=== PATIENT | female | born 1935 | race Caucasian/White ===

== ENCOUNTER 2017-11-22 23:12 | Emergency (ER) | payer OTHER ==
[~2017-11-22] VITALS: Ht 167.6 cm; Wt 59.0 kg
[2017-11-22 23:23] VITALS: BP_SYST 127
[2017-11-23] MEDS ORDERED: ACETAMINOPHEN 500 MG TABLET PO ONE (01:15)
[2017-11-23 04:01] VITALS: BP_SYST 117
== END 2017-11-23 04:01 | disposition home or self-care (01) ==
LOC: SED 23:12
DX: M25.551 Pain in right hip (principal); M54.2 Cervicalgia; Z88.6 Allergy status to analgesic agent
CPT/HCPCS: 70450-TC; 72125-TC; 72192-TC; 99284

== ENCOUNTER 2019-01-21 17:22 | Emergency (ER) | payer OTHER, MEDICAID ==
[~2019-01-21] VITALS: Ht 167.6 cm; Wt 61.2 kg
[2019-01-21 17:40] VITALS: BP_SYST 150
[2019-01-21 20:21] LABS: BASOPHILS # (AUTO) 0.1 K/uL (0.0-0.2); BASOPHILS % (AUTO) 0.6 % (0.0-2.0); EOSINOPHILS # (AUTO) 0.2 K/uL (0.0-0.4); EOSINOPHILS % (AUTO) 2.5 % (0.0-4.0); HEMATOCRIT 36.6 % (36-48); HEMOGLOBIN 12.7 g/dL (12.0-16.0); LYMPHOCYTES # (AUTO) 1.4 K/uL (1.0-5.5); MEAN CORPUSCULAR HEMOGLOBIN 33 pg (27-31); MEAN CORPUSCULAR HGB CONC 35 % (32-36); MEAN CORPUSCULAR VOLUME 95 fL (79.0-98.0); MONOCYTES # (AUTO) 0.7 K/uL (0.0-1.0); MONOCYTES % (AUTO) 7.4 % (1.7-9.3); NEUTROPHILS # (AUTO) 7.4 K/uL (1.8-7.7); NEUTROPHILS % (AUTO) 75.5 % (40.0-70.0); PLATELET COUNT (AUTO) 235 K/uL (130-430); RED BLOOD CELL COUNT(AUTO) 3.86 MIL/uL (4.2-6.2); RED CELL DISTRIBUTION WIDTH 13.3 % (9.0-15.0); WHITE BLOOD COUNT (AUTO) 9.8 K/uL (4.8-10.8)
[2019-01-21] MEDS ORDERED: fentaNYL CITRATE/PF 100 MCG/2 ML AMP IM ONE (20:30)
[2019-01-21 20:42] LABS: ALANINE AMINOTRANSFERASE 19 U/L (12-78); ANION GAP 5 (5-15); ASPARTATE AMINOTRANSFERASE 28 U/L (10-37); CHLORIDE 105 mmol/L (98-107); CREATININE 0.85 mg/dL (0.55-1.30); GLUCOSE 110 mg/dL (70-99); POTASSIUM 3.6 mmol/L (3.5-5.1); SODIUM SERUM 139 mmol/L (136-145); TOTAL BILIRUBIN 0.3 mg/dL (0.0-1.0); UREA NITROGEN, BLOOD 10 mg/dL (8-21)
[2019-01-22 01:27] LABS: CALCIUM 8.8 mg/dL (8.4-11.0)
[2019-01-22] MEDS ORDERED: CYCLOBENZAPRINE HCL 10 MG TABLET (FLEXERIL) PO ONE (01:45)
[2019-01-22 02:00] VITALS: BP_SYST 119
[2019-01-22 02:14] LABS: CKMB RELATIVE INDEX 0.3 (0.0-2.9); CREATINE KINASE MB 1.1 ng/mL (0-3.6)
[2019-01-22] MEDS ORDERED: DULO60CA41 PO (15:54)
[2019-01-22] MEDS ORDERED: BUPR75TA8 PO (15:55)
[2019-01-22] MEDS ORDERED: DONE10TA44 PO (15:55)
[2019-01-22] MEDS ORDERED: MECL12.584 PO (15:59)
== END 2019-01-22 02:00 | disposition home or self-care (01) ==
LOC: SED 17:22
DX: S22.20XA Unspecified fracture of sternum, initial encounter for closed fracture (principal); M94.0 Chondrocostal junction syndrome [Tietze]; I10 Essential (primary) hypertension; Z88.6 Allergy status to analgesic agent; W18.39XA Other fall on same level, initial encounter; Y93.89 Activity, other specified; Y92.89 Other specified places as the place of occurrence of the external cause; Y99.8 Other external cause status
CPT/HCPCS: 36415; 70450; 71110; 71250; 72125; 80053; 82550; 82553; 84484; 85025; 93005; 96372; 99284; J3010

== ENCOUNTER 2019-01-22 14:58 | Inpatient (IN) | payer OTHER, MEDICAID ==
[~2019-01-22] VITALS: Ht 170.2 cm; Wt 67.1 kg
[2019-01-22 15:37] VITALS: BP_SYST 143
--- NOTE | 2019-01-22 15:42 | NUR ---
Patient to ER bed 6 to gown for evaluation. Side rails up. Report given to JOSE Rojas.
--- NOTE | 2019-01-22 15:44 | NUR ---
Patient is awake, alert, and oriented x4. Son is at bedside. Patient was called by radiology and told to come back, so they are here for a follow up. Patient is complaining of sternal pain 10/10, denies any other issues.
--- NOTE | 2019-01-22 15:45 | NUR ---
SHARA Le at bedside examining patient.
[2019-01-22] MEDS ORDERED: DULO60CA41 PO (15:54)
[2019-01-22] MEDS ORDERED: BUPR75TA8 PO (15:55)
[2019-01-22] MEDS ORDERED: DONE10TA44 PO (15:55)
[2019-01-22] MEDS ORDERED: MECL12.584 PO (15:59)
[2019-01-22] MEDS ORDERED: MORPHINE 4 MG/ML INJ. SYRINGE IVP ONE (16:00)
--- NOTE | 2019-01-22 16:10 | NUR ---
Radiology at bedside.
--- NOTE | 2019-01-22 16:53 | NUR ---
Patient will be admitted to care of Dr Emanuel. Admitted to medsurg unit. Will go to room 113A. Belongings list completed. Summary report printed. Report will be given at bedside.
--- NOTE | 2019-01-22 17:30 | NUR ---
Transfer to [facility]. IV present no signs or symptoms of infiltration.
--- NOTE | 2019-01-22 17:30 | NUR ---
Bob rios in ED - 01/22/19 at 1743 by [email or web address] Transfer to [facility]. IV present no signs or symptoms of infiltration.
--- NOTE | 2019-01-22 17:34 | NUR ---
ADMIT NOTE Received pt from ER to the floor with a diagnosis of STERNAL PAIN. Admission process initiated. patient oriented to pain management, safety and call light-teach back done.
[2019-01-22 17:56] VITALS: BP_SYST 156
--- NOTE | 2019-01-22 18:25 | NUR ---
RN OPENING NOTE PATIENT REPORT RECEIVED FROM JOCELIN LAWTON RN, WILL ASSESS THE PATIENT AND ENDORSE TO NEXT SHIFT.
[2019-01-22] MEDS ORDERED: traMADol HCL HCL 50 MG TABLET (ULTRAM) PO PRN (19:00)
[2019-01-22] MEDS ORDERED: PANTOPRAZOLE SODIUM 40 MG TAB PO SCH ×2 (19:00→20:00)
--- NOTE | 2019-01-22 19:42 | NUR ---
OPENING NOTES Patient is resting with family at bedside. No signs of acute respiratory distress observed. Patient has 0/10 with no movement but states she has pain when she moves. Call light within reach, bed alarm on, and bed at lowest position. Will continue to monitor.
[2019-01-22] MEDS ORDERED: DONEPEZIL HCL 5 MG TABLET (ARICEPT) PO SCH (21:00)
--- NOTE | 2019-01-22 22:14 | NUR ---
Patient is resting, eyes closed. No signs of respiratory distress observed. Patient is forgetful and needs to be reoriented that she had fallen and was brought to the hospital. Call light within reach, bed alarm on, bed at lowest position. Will continue to monitor.
--- NOTE | 2019-01-22 23:24 | NUR ---
IV RE-INSERTION: Patient pulled out IV at Left AC. Catheter intact. Restarted on 2323. Successful after 2 attempts. Will observe for any signs of infiltration.
--- NOTE | 2019-01-23 00:15 | NUR ---
Patient is resting, no signs of acute respiratory distress observed. Safety precautions in place. Will continue to monitor.
[2019-01-23 00:30] VITALS: BP_SYST 128
--- NOTE | 2019-01-23 02:35 | NUR ---
Patient is resting, no signs of acute respiratory distress observed. Call light within reach, bed alarm on, and bed at lowest position. Will continue to monitor.
--- NOTE | 2019-01-23 03:24 | NUR ---
SPOKE TO DR. SPRING, RECEIVED NEW ORDERS OF HALDOL 3MG IM ONE TIME DOSE. Relayed to Dr. Cleaning that patient is attempting to leave, stated that her daughter was waiting outside, patient is not able to be redirected after reorienting to plan of care and location. Will carry out orders.
[2019-01-23] MEDS ORDERED: HALOPERIDOL LACTATE 5 MG/ML VIAL IM SCH (04:00)
--- NOTE | 2019-01-23 04:32 | NUR ---
IV site at Right wrist infiltrated, Restarted on Right forearm. Will observe for any signs of infiltration. Patient is resting, no signs of acute respiratory distress observed. Patient still requires continual reorientation of location and plan of care. Call light within reach, bed alarm on, and bed at loweset position. Will continue to monitor.
--- NOTE | 2019-01-23 06:45 | NUR ---
CLOSING NOTES Patient is resting, no signs of acute respiratory distress observed. HOB elevated. Patient is continually reoriented but calm. SCD's on. Call light within reach, bed alarm on, bed at lowest position. Will endorse care to oncoming shift.
--- NOTE | 2019-01-23 06:55 | NUR ---
Nutrition Update Scott Scale 17 noted. Pt admitted for Substernal Bone fracture Diet: Regular BMI: 23.2 kg/m2 RD to follow per nutrition care standards.
[2019-01-23 07:00] LABS: BASOPHILS # (AUTO) 0.1 K/uL (0.0-0.2); BASOPHILS % (AUTO) 0.6 % (0.0-2.0); EOSINOPHILS # (AUTO) 0.2 K/uL (0.0-0.4); EOSINOPHILS % (AUTO) 2.3 % (0.0-4.0); HEMATOCRIT 37.5 % (36-48); HEMOGLOBIN 12.7 g/dL (12.0-16.0); LYMPHOCYTES # (AUTO) 0.8 K/uL (1.0-5.5); LYMPHOCYTES % (AUTO) 7.1 % (20.5-51.5); MEAN CORPUSCULAR HEMOGLOBIN 32 pg (27-31); MEAN CORPUSCULAR HGB CONC 34 % (32-36); MEAN CORPUSCULAR VOLUME 95 fL (79.0-98.0); MONOCYTES # (AUTO) 0.6 K/uL (0.0-1.0); MONOCYTES % (AUTO) 6.1 % (1.7-9.3); NEUTROPHILS # (AUTO) 8.9 K/uL (1.8-7.7); NEUTROPHILS % (AUTO) 83.9 % (40.0-70.0); PLATELET COUNT (AUTO) 250 K/uL (130-430); RED BLOOD CELL COUNT(AUTO) 3.93 MIL/uL (4.2-6.2); RED CELL DISTRIBUTION WIDTH 13.1 % (9.0-15.0); WHITE BLOOD COUNT (AUTO) 10.6 K/uL (4.8-10.8)
[2019-01-23 07:34] LABS: ANION GAP 4 (5-15); CHLORIDE 104 mmol/L (98-107); CREATININE 0.84 mg/dL (0.55-1.30); GLUCOSE 106 mg/dL (70-99); POTASSIUM 3.5 mmol/L (3.5-5.1); SODIUM SERUM 139 mmol/L (136-145); UREA NITROGEN, BLOOD 8 mg/dL (8-21)
[2019-01-23 08:06] LABS: CALCIUM 8.6 mg/dL (8.4-11.0)
[2019-01-23] MEDS ORDERED: MECLIZINE HCL 25 MG TABLET (ANITVERT) PO PRN (08:15)
[2019-01-23 08:49] VITALS: BP_SYST 118
[2019-01-23] MEDS ORDERED: PANTOPRAZOLE SODIUM 40 MG TAB PO SCH (09:00)
[2019-01-23] MEDS ORDERED: buPROPion HCL 75 MG TABLET PO SCH (09:00)
[2019-01-23] MEDS ORDERED: DULoxetine HCL 30 MG CAPSULE.DR (CYMBALTA) PO SCH (09:00)
--- NOTE | 2019-01-23 09:27 | NUR ---
01/23/2019 0927 This patient is sitting up in bed. She is confused, alert and oriented to name only, however very pleasant and cooperative. Vital signs obtained: bp 118/57, HR 63, temp 98.4, 93%RA, resp 20. No s/s of distress. The patient states that she is hard of hearing. Labs reviewed for today: potassium 3.5. She is advised to request assistance to get up. Bed alarm on.
--- NOTE | 2019-01-23 11:12 | NUR ---
01/23/2019 1112 This patient is lying down, eyes closed. No s/s of distress.
[2019-01-23 12:35] VITALS: BP_SYST 116; BP_SYST 127
[2019-01-23 16:08] VITALS: BP_SYST 116
[2019-01-23 16:53] VITALS: BP_SYST 118
--- NOTE | 2019-01-23 20:25 | NUR ---
01/23/2019 1300 This patient is resting in bed. She tolerated her lunch well. No s/s of distress.
--- NOTE | 2019-01-23 20:51 | NUR ---
01/23/2019 1600 PT has been in to evaluate the patient. Patient tolerated PT session.
--- NOTE | 2019-01-23 20:54 | NUR ---
01/23/2019 1640 The patient will discharge today. The family member has dressed the patient because she was told th patient was discharged by the physician. She was informed that it make take additional time to complete the paperwork before the patient will be allowed to leave. The family member has been given prescriptions for the patient by the physician so they cannot be copied. The pt's family member has left the bedside without stating when she will return.
--- NOTE | 2019-01-23 20:59 | NUR ---
01/23/2019 182 The patient is sitting up to the side of the bed. Her food is not touched. When asked whether she will eat, she states she doesn't want to be eating and miss her ride when her family returns to get her. She is encouarged to complete her meal, that they will not leave her here.
--- NOTE | 2019-01-23 21:01 | NUR ---
01/23/2019 1845 The patient is walking in the jewell with the walker stating that she is tiring from waiting for family to return. She is assisted back into her room and requested to remain there until family return.
--- NOTE | 2019-01-23 21:05 | NUR ---
01/23/2019 1855 The family have phoned to ask that the patient be brought down, and the patient is not in her room, nor in the bathroom. They are told that she is not in her room, that staff is actively searching for her. CN is made aware. Security is made aware. supervisor hydrochloric area is made aware. Arsenio's department are all called by the room nurse.
--- NOTE | 2019-01-23 21:10 | NUR ---
01/23/20192014 The [facility] department have made the hospital aware that the patient walked home and is now with family. CN has stated she has completed an incident report.
== END 2019-01-23 18:50 | disposition home or self-care (01) | DRG 914 ==
LOC: SED 14:58 → SMU 16:51
PROVIDERS: ADMIT Family Medicine; ATTEND Family Medicine
DX: S29.9XXA Unspecified injury of thorax, initial encounter (principal); S22.20XA Unspecified fracture of sternum, initial encounter for closed fracture; F03.90 Unspecified dementia, unspecified severity, without behavioral disturbance, psychotic disturbance, mood disturbance, and anxiety; F32.9 Major depressive disorder, single episode, unspecified; M19.90 Unspecified osteoarthritis, unspecified site; M81.0 Age-related osteoporosis without current pathological fracture; I10 Essential (primary) hypertension; W18.30XA Fall on same level, unspecified, initial encounter; Y93.89 Activity, other specified; Y92.89 Other specified places as the place of occurrence of the external cause; Y99.8 Other external cause status; Z79.899 Other long term (current) drug therapy; Z88.6 Allergy status to analgesic agent
CPT/HCPCS: 36415; 71045; 73564; 80048; 85025; 96374; 99285; J1630; J2270

== ENCOUNTER 2019-10-01 21:48 | Emergency (ER) | payer OTHER, MEDICAID ==
[~2019-10-01] VITALS: Ht 162.6 cm; Wt 68.0 kg
[~2019-10-01 21:48] MED LIST: BUPR75TA8 PO; DONE10TA44 PO; DULO60CA41 PO; MECL12.584 PO
[2019-10-01 22:10] VITALS: BP_SYST 156
--- NOTE | 2019-10-01 22:10 | NUR ---
Placed in room 4 . Placed on software design engineer, blood pressure machine and pulse oximeter. To gown for exam. Side rails up.
--- NOTE | 2019-10-01 22:15 | NUR ---
ER at bedside examining patient.
--- NOTE | 2019-10-01 22:18 | NUR ---
Pt presents to the ER for c/o fall on the right side of the body x yesterday. Daughter states mother fell getting out of the passenger side of the care, believes pt just lost her footing and tripped. Pt fell on R elbow and R hip. Pt has slight scrape on R elbow w/ swelling. No bruising present, denies bruising on hip. Pain when extending elbow. Denies LOC, n/v/d, sob, CP. HX of dementia. Allergy to Aspirin.
[2019-10-01] MEDS ORDERED: MORPHINE 2 MG/ML INJ. SYRINGE IM ONE (22:30)
--- NOTE | 2019-10-01 23:05 | NUR ---
Patient transported to radiology via wheelchair, accompanied by building maintenance technician.
[2019-10-01 23:50] VITALS: BP_SYST 156
--- NOTE | 2019-10-02 00:57 | NUR ---
Patient given written and verbal discharge instructions and verbalizes understanding. ER MD discussed with patient the results and treatment provided. Patient in stable condition. ID arm band removed. Rx of [place] and Narcan given. Patient educated on pain management and to follow up with PMD. Pain Scale 4/10 Opportunity for questions provided and answered. Medication side effect fact sheet provided.
== END 2019-10-02 00:57 | disposition home or self-care (01) ==
LOC: SED 21:48
DX: S32.591A Other specified fracture of right pubis, initial encounter for closed fracture (principal); M25.461 Effusion, right knee; E27.8 Other specified disorders of adrenal gland; I10 Essential (primary) hypertension; Z79.899 Other long term (current) drug therapy; Z88.6 Allergy status to analgesic agent; W01.0XXA Fall on same level from slipping, tripping and stumbling without subsequent striking against object, initial encounter; Y93.89 Activity, other specified; Y92.89 Other specified places as the place of occurrence of the external cause; Y99.8 Other external cause status
CPT/HCPCS: 72192; 73090; 73700; 96372; 99285; J2270

== ENCOUNTER 2021-01-16 13:14 | Inpatient (IN) | payer OTHER, MEDICAID, SELFPAY ==
[~2021-01-16] VITALS: Ht 160 cm; Wt 64.0 kg
[~2021-01-16 13:14] MED LIST changes: +MECL-225 PO; -MECL12.584 PO
[2021-01-16 13:17] VITALS: BP_SYST 162
[2021-01-16] MEDS ORDERED: NACL 0.9% 1,000 ML IV ONE (14:00)
[2021-01-16 14:05] LABS: ANION GAP 7 (5-15); BASOPHILS % (AUTO) 0.3 % (0.0-2.0); CALCIUM 9.3 mg/dL (8.4-11.0); CHLORIDE 101 mmol/L (98-107); EOSINOPHILS # (AUTO) 0.1 K/uL (0.0-0.4); EOSINOPHILS % (AUTO) 0.5 % (0.0-4.0); GLUCOSE 99 mg/dL (70-99); HEMATOCRIT 41.7 % (36-48); HEMOGLOBIN 14.2 g/dL (12.0-16.0); LYMPHOCYTES # (AUTO) 1.6 K/uL (1.0-5.5); LYMPHOCYTES % (AUTO) 12.4 % (20.5-51.5); MEAN CORPUSCULAR HEMOGLOBIN 32 pg (27-31); MEAN CORPUSCULAR HGB CONC 34 % (32-36); MEAN CORPUSCULAR VOLUME 94 fL (79.0-98.0); MONOCYTES # (AUTO) 0.8 K/uL (0.0-1.0); MONOCYTES % (AUTO) 6.4 % (1.7-9.3); NEUTROPHILS # (AUTO) 10.2 K/uL (1.8-7.7); NEUTROPHILS % (AUTO) 80.4 % (40.0-70.0); PLATELET COUNT (AUTO) 220 K/uL (130-430); POTASSIUM 3.7 mmol/L (3.5-5.1); RED BLOOD CELL COUNT(AUTO) 4.41 MIL/uL (4.2-6.2); RED CELL DISTRIBUTION WIDTH 14.1 % (9.0-15.0); SODIUM SERUM 138 mmol/L (136-145); UREA NITROGEN, BLOOD 11 mg/dL (8-21); WHITE BLOOD COUNT (AUTO) 12.7 K/uL (4.8-10.8)
[2021-01-16 14:11] LABS: ALANINE AMINOTRANSFERASE 22 U/L (12-78); ALBUMIN 3.4 g/dL (3.4-4.8); ASPARTATE AMINOTRANSFERASE 23 U/L (10-37); TOTAL BILIRUBIN 0.9 mg/dL (0.0-1.0)
[2021-01-16] MEDS ORDERED: MEMA10TA PO (14:47)
[2021-01-16] MEDS ORDERED: RISP1TAB45 PO (14:47)
[2021-01-16 15:04] LABS: BILIRUBIN,URINE NEGATIVE (NEGATIVE); CLARITY/URINE CLEAR (CLEAR); COLOR,URINE YELLOW (YELLOW); GLUCOSE,URINE NEGATIVE (NEGATIVE); KETONES,URINE NEGATIVE (NEGATIVE); LEUKOCYTE ESTERASE ,URINE NEGATIVE (NEGATIVE); NITRITE, URINE NEGATIVE (NEGATIVE); PROTEIN URINE NEGATIVE (NEGATIVE); UROBILINOGEN,URINE 0.2 (0.2-1.0)
[2021-01-16 15:07] LABS: BLOOD, URINE TRACE (NEGATIVE)
[2021-01-16 18:51] LABS: BACTERIA,URINE RARE /HPF (None Seen); WBC,URINE 0-3 /HPF (0-3)
[2021-01-16 19:57] VITALS: BP_SYST 146
[2021-01-17] MEDS ORDERED: MECLIZINE HCL 25 MG TABLET (ANITVERT) PO PRN (00:30)
[2021-01-17 01:00] VITALS: BP_SYST 138
[2021-01-17] MEDS ORDERED: DONEPEZIL HCL 5 MG TABLET (ARICEPT) ONE (01:05)
[2021-01-17] MEDS ORDERED: risperiDONE 1 MG TABLET (RisperDAL) PO ONE (01:15)
[2021-01-17] MEDS ORDERED: DONEPEZIL HCL 5 MG TABLET (ARICEPT) PO ONE (01:15)
[2021-01-17] MEDS ORDERED: COMMUNICATION ORDER XX ONE (01:15)
[2021-01-17 08:00] VITALS: BP_SYST 119
[2021-01-17] MEDS: DULoxetine HCL 30 MG CAPSULE.DR (CYMBALTA) PO SCH (08:58)
[2021-01-17] MEDS: MEMANTINE HCL 5 MG TABLET PO SCH (08:58)
[2021-01-17 09:14] LABS: CHOLESTEROL 161 mg/dL (<200); HDL CHOLESTEROL 65 mg/dL (>55); LDL CHOLESTEROL 87 mg/dL (<100); TRIGLYCERIDES 103 mg/dL (30-150)
[2021-01-17 12:26] VITALS: BP_SYST 100
[2021-01-17] MEDS ORDERED: NALOXONE HCL 0.4 MG/ML AMP (NARCAN) IVP PRN ×2 (13:30)
[2021-01-17] MEDS ORDERED: MECLIZINE HCL 25 MG TABLET (ANITVERT) PO SCH (13:30)
[2021-01-17] MEDS ORDERED: HYDROcodone/ACETAMIN 5-325 MG TAB (NORCO/ VICODIN) PO PRN (13:30)
[2021-01-17] MEDS ORDERED: HYDROcodone/ACETAMIN 10-325 MG TAB PO PRN (13:30)
[2021-01-17] MEDS ORDERED: ONDANSETRON HCL 4 MG/2 ML VIAL IVP PRN (13:30)
[2021-01-17] MEDS ORDERED: ACETAMINOPHEN 325 MG TABLET PO PRN (13:30)
[2021-01-17] MEDS ORDERED: LORazepam 2 MG/ML VIAL IVP PRN (13:30)
[2021-01-17] MEDS: NORMAL SALINE 5 ML DISP.SYRIN IVF SCH ×2 (14:00→21:19)
[2021-01-17 16:44] VITALS: BP_SYST 109
[2021-01-17 20:00] VITALS: BP_SYST 115
[2021-01-17] MEDS ORDERED: risperiDONE 1 MG TABLET (RisperDAL) PO SCH (21:00)
[2021-01-17] MEDS ORDERED: DONEPEZIL HCL 5 MG TABLET (ARICEPT) PO SCH (21:00)
[2021-01-17] MEDS: risperiDONE 1 MG TABLET (RisperDAL) PO SCH (21:19)
[2021-01-17] MEDS: DONEPEZIL HCL 5 MG TABLET (ARICEPT) PO SCH (21:19)
[2021-01-18] VITALS: BP_SYST 122
[2021-01-18 07:09] LABS: BASOPHILS # (AUTO) 0.1 K/uL (0.0-0.2); BASOPHILS % (AUTO) 0.8 % (0.0-2.0); EOSINOPHILS # (AUTO) 0.3 K/uL (0.0-0.4); EOSINOPHILS % (AUTO) 2.7 % (0.0-4.0); HEMATOCRIT 37.9 % (36-48); HEMOGLOBIN 13.1 g/dL (12.0-16.0); LYMPHOCYTES # (AUTO) 1.6 K/uL (1.0-5.5); MEAN CORPUSCULAR HEMOGLOBIN 33 pg (27-31); MEAN CORPUSCULAR HGB CONC 35 % (32-36); MEAN CORPUSCULAR VOLUME 95 fL (79.0-98.0); MONOCYTES # (AUTO) 0.8 K/uL (0.0-1.0); MONOCYTES % (AUTO) 7.9 % (1.7-9.3); NEUTROPHILS # (AUTO) 6.9 K/uL (1.8-7.7); NEUTROPHILS % (AUTO) 71.6 % (40.0-70.0); PLATELET COUNT (AUTO) 186 K/uL (130-430); RED CELL DISTRIBUTION WIDTH 14.4 % (9.0-15.0); WHITE BLOOD COUNT (AUTO) 9.6 K/uL (4.8-10.8)
[2021-01-18 08:00] VITALS: BP_SYST 104
[2021-01-18 08:07] LABS: ANION GAP 6 (5-15); CALCIUM 8.5 mg/dL (8.4-11.0); CHLORIDE 102 mmol/L (98-107); CREATININE 0.94 mg/dL (0.55-1.30); GLUCOSE 97 mg/dL (70-99); PHOSPHORUS 3.8 mg/dL (2.7-4.5); POTASSIUM 3.8 mmol/L (3.5-5.1); SODIUM SERUM 140 mmol/L (136-145); UREA NITROGEN, BLOOD 12 mg/dL (8-21)
[2021-01-18] MEDS: MEMANTINE HCL 5 MG TABLET PO SCH (08:45)
[2021-01-18] MEDS: DULoxetine HCL 30 MG CAPSULE.DR (CYMBALTA) PO SCH (08:46)
[2021-01-18] MEDS ORDERED: DULoxetine HCL 30 MG CAPSULE.DR (CYMBALTA) PO SCH (09:00)
[2021-01-18] MEDS ORDERED: MEMANTINE HCL 5 MG TABLET PO SCH (09:00)
[2021-01-18 12:00] VITALS: BP_SYST 107
[2021-01-18] MEDS ORDERED: ASPI-1393 PO (13:01)
[2021-01-18] MEDS: NORMAL SALINE 5 ML DISP.SYRIN IVF SCH ×2 (13:29→22:02)
[2021-01-18 16:07] VITALS: BP_SYST 106
[2021-01-18] MEDS: DONEPEZIL HCL 5 MG TABLET (ARICEPT) PO SCH (20:58)
[2021-01-18] MEDS: risperiDONE 1 MG TABLET (RisperDAL) PO SCH (20:58)
[2021-01-19 00:54] VITALS: BP_SYST 170
[2021-01-19] MEDS: NORMAL SALINE 5 ML DISP.SYRIN IVF SCH ×2 (05:21→15:02)
[2021-01-19 08:00] VITALS: BP_SYST 120
[2021-01-19] MEDS: MEMANTINE HCL 5 MG TABLET PO SCH (08:32)
[2021-01-19] MEDS: DULoxetine HCL 30 MG CAPSULE.DR (CYMBALTA) PO SCH (08:32)
[2021-01-19 09:27] LABS: BASOPHILS % (AUTO) 0.5 % (0.0-2.0); EOSINOPHILS # (AUTO) 0.3 K/uL (0.0-0.4); EOSINOPHILS % (AUTO) 3.6 % (0.0-4.0); HEMATOCRIT 36.7 % (36-48); HEMOGLOBIN 12.4 g/dL (12.0-16.0); LYMPHOCYTES # (AUTO) 1.3 K/uL (1.0-5.5); LYMPHOCYTES % (AUTO) 17.9 % (20.5-51.5); MEAN CORPUSCULAR HEMOGLOBIN 32 pg (27-31); MEAN CORPUSCULAR HGB CONC 34 % (32-36); MEAN CORPUSCULAR VOLUME 95 fL (79.0-98.0); MONOCYTES # (AUTO) 0.6 K/uL (0.0-1.0); MONOCYTES % (AUTO) 7.9 % (1.7-9.3); NEUTROPHILS # (AUTO) 5.1 K/uL (1.8-7.7); NEUTROPHILS % (AUTO) 70.1 % (40.0-70.0); PLATELET COUNT (AUTO) 184 K/uL (130-430); RED BLOOD CELL COUNT(AUTO) 3.87 MIL/uL (4.2-6.2); RED CELL DISTRIBUTION WIDTH 14.3 % (9.0-15.0); WHITE BLOOD COUNT (AUTO) 7.3 K/uL (4.8-10.8)
[2021-01-19] MEDS ORDERED: ATORVASTATIN 20 MG TABLET PO ONE (09:30)
[2021-01-19] MEDS ORDERED: CLOPIDOGREL BISULFATE 75 MG TABLET PO ONE (09:30)
[2021-01-19 10:24] LABS: ANION GAP 8 (5-15); CALCIUM 8.5 mg/dL (8.4-11.0); CHLORIDE 104 mmol/L (98-107); CREATININE 0.69 mg/dL (0.55-1.30); GLUCOSE 86 mg/dL (70-99); POTASSIUM 3.4 mmol/L (3.5-5.1); SODIUM SERUM 140 mmol/L (136-145); UREA NITROGEN, BLOOD 11 mg/dL (8-21)
[2021-01-19 12:28] VITALS: BP_SYST 129
[2021-01-19] MEDS ORDERED: POTASSIUM CHLORIDE 20 MEQ TAB.PRT.SR PO ONE (14:15)
[2021-01-19 16:03] VITALS: BP_SYST 116
[2021-01-20] MEDS ORDERED: CLOPIDOGREL BISULFATE 75 MG TABLET PO SCH (09:00)
[2021-01-20] MEDS ORDERED: ATORVASTATIN 20 MG TABLET PO SCH (09:00)
== END 2021-01-19 18:15 | disposition home health service (06) | DRG 69 ==
LOC: SED 13:14 → STU 17:02
PROVIDERS: ADMIT Preventive Medicine Preventive Medicine/Occupational Environmental Medicine; ATTEND Preventive Medicine Preventive Medicine/Occupational Environmental Medicine
DX: G45.9 Transient cerebral ischemic attack, unspecified (principal); F03.90 Unspecified dementia, unspecified severity, without behavioral disturbance, psychotic disturbance, mood disturbance, and anxiety; I10 Essential (primary) hypertension; D72.829 Elevated white blood cell count, unspecified; Z20.822 Contact with and (suspected) exposure to COVID-19; Z88.6 Allergy status to analgesic agent; Z79.899 Other long term (current) drug therapy
CPT/HCPCS: 36415; 70450-TC; 71045; 76376; 80048; 80053; 80061; 81000; 82962; 83735; 84100; 84484; 85025; 85610-TC; 85730-TC; 93306; 93880; 96360; 97116-GP; 99285; G0378

== ENCOUNTER 2021-02-06 10:19 | Emergency (ER) | payer OTHER, MEDICAID ==
[~2021-02-06] VITALS: Ht 165.1 cm; Wt 64.9 kg
[~2021-02-06 10:19] MED LIST changes: +ASPI-1393 PO; -BUPR75TA8 PO; +MEMA10TA PO; +RISP1TAB45 PO
[2021-02-06 10:20] VITALS: BP_SYST 141
--- NOTE | 2021-02-06 10:25 | NUR ---
BROUGHT IMMEDIATELY BACK TO BED #3 AND TRIAGED. REPORT GIVEN TO DR LISA COLLINS CALLED TO BEDSIDE
--- NOTE | 2021-02-06 10:28 | NUR ---
CODE SANCHEZ INITIATED
--- NOTE | 2021-02-06 10:30 | NUR ---
DR GONZALEZ IN TO ASSESS
--- NOTE | 2021-02-06 10:33 | NUR ---
TAKEN TO RADIOLOGY VIA [facility]
--- NOTE | 2021-02-06 10:45 | NUR ---
OFF TO CT VIA [facility]. NO DISTRESS, RESP UNLABORED, SKIN WARM AND DRY
[2021-02-06 10:49] LABS: BASOPHILS # (AUTO) 0.1 K/uL (0.0-0.2); BASOPHILS % (AUTO) 1.1 % (0.0-2.0); EOSINOPHILS # (AUTO) 0.2 K/uL (0.0-0.4); EOSINOPHILS % (AUTO) 1.7 % (0.0-4.0); HEMATOCRIT 40.3 % (36-48); HEMOGLOBIN 13.7 g/dL (12.0-16.0); LYMPHOCYTES # (AUTO) 1.9 K/uL (1.0-5.5); LYMPHOCYTES % (AUTO) 16.8 % (20.5-51.5); MEAN CORPUSCULAR HEMOGLOBIN 32 pg (27-31); MEAN CORPUSCULAR HGB CONC 34 % (32-36); MEAN CORPUSCULAR VOLUME 96 fL (79.0-98.0); MONOCYTES # (AUTO) 0.7 K/uL (0.0-1.0); MONOCYTES % (AUTO) 5.8 % (1.7-9.3); NEUTROPHILS # (AUTO) 8.6 K/uL (1.8-7.7); NEUTROPHILS % (AUTO) 74.6 % (40.0-70.0); PLATELET COUNT (AUTO) 275 K/uL (130-430); RED BLOOD CELL COUNT(AUTO) 4.22 MIL/uL (4.2-6.2); RED CELL DISTRIBUTION WIDTH 14.3 % (9.0-15.0); WHITE BLOOD COUNT (AUTO) 11.5 K/uL (4.8-10.8)
[2021-02-06 11:04] LABS: INR 0.9 (0.8-1.2); PROTHROMBIN TIME 9.8 SECS (9.5-12.5)
[2021-02-06 11:06] LABS: ANION GAP 7 (5-15); CALCIUM 9.1 mg/dL (8.4-11.0); CHLORIDE 103 mmol/L (98-107); CREATININE 0.79 mg/dL (0.55-1.30); GLUCOSE 99 mg/dL (70-99); POTASSIUM 3.4 mmol/L (3.5-5.1); SODIUM SERUM 138 mmol/L (136-145); UREA NITROGEN, BLOOD 11 mg/dL (8-21)
[2021-02-06 11:11] LABS: ALANINE AMINOTRANSFERASE 19 U/L (12-78); ALBUMIN 3.3 g/dL (3.4-4.8); ASPARTATE AMINOTRANSFERASE 27 U/L (10-37); TOTAL BILIRUBIN 0.5 mg/dL (0.0-1.0)
--- NOTE | 2021-02-06 11:45 | NUR ---
TELE NEURO CONSULT COMPLETED,
--- NOTE | 2021-02-06 12:00 | NUR ---
TRANSFER INFO [facility] ER DR. GONZALES SPOKE TO KARMA [facility] SHRUTHI, STATED SHE WILL SET UP TRANSPORT AND WILL CALL BACK.
--- NOTE | 2021-02-06 12:04 | NUR ---
PARISH PARADA, CALLDE BACK STATED HADOOP JAVA DEVELOPER WILL BE HERE IN 10 MINUTES. AND RN AWARE
--- NOTE | 2021-02-06 12:11 | NUR ---
FAMILY AT BEDSIDE, AWARE OF TRANSFER TO [facility]. CONSENT SIGNED
[2021-02-06 12:20] VITALS: BP_SYST 154
--- NOTE | 2021-02-06 12:20 | NUR ---
Patient to be transferred to [facility]. Is being transferred due to higher level of care. Receiving facility has accepting physician and available space. ER physician has signed transfer form. Patient or responsible republican has agreed to transfer and signed form. Patient belongings inventoried and will be sent with patient. Copy of nursing notes, lab reports, EKG, Physicians Orders and X-rays to be sent with patient. Report called to RAVINDRA at receiving facility. Receiving physician is NEURO. [facility]. ETA is NOW
== END 2021-02-06 12:20 | disposition short-term general hospital (02) ==
LOC: SED 10:19
DX: I63.9 Cerebral infarction, unspecified (principal); I10 Essential (primary) hypertension; Z88.6 Allergy status to analgesic agent; Z79.82 Long term (current) use of aspirin; Z79.899 Other long term (current) drug therapy
CPT/HCPCS: 36415; 70450; 70496; 70498; 71045; 76376; 80053; 82550; 82962; 83605; 83880; 84484; 85025; 85610; 85730; 93005; 99285; Q9967